=== PATIENT | female | born 1945 | race Caucasian/White ===

== ENCOUNTER 2024-05-29 15:39 | Inpatient (IN) ==
[2024-05-29] MEDS: Lactated Ringers 1000 ml BAG 1,000 ML IV ONE ×3 (16:28→20:36)
[2024-05-29] MEDS ORDERED: Lactated Ringers 1000 ml BAG 1,000 ML IV SCH (17:00)
[2024-05-29 17:02] LABS: Hematocrit 36.8 % (35-45); Mean Corpuscular Hemoglobin 31.6 pg (27-33); Mean Corpuscular Hgb Conc 32.6 g/dL (31-36); Mean Corpuscular Volume 96.9 fL (80-97); Mean Platelet Volume 9.9 fL (7.5-11.2); Platelet Count 253 10^3/uL (150-450); Red Cell Distribution Width 12.2 % (12-17); White Blood Count 25.7 10^3/uL (3.8-11.8)
[2024-05-29 17:16] LABS: Albumin 3.6 g/dL (3.2-5.2); Albumin/Globulin Ratio 1.3 (1-3); Calcium 9.9 mg/dL (8.6-10.3); Creatinine, Serum 2.28 mg/dL (0.51-0.95); Globulin 2.8 g/dL (2-4); Magnesium 1.5 mg/dL (1.9-2.7); Potassium 3.2 mmol/L (3.5-5.0); Total Protein 6.4 g/dL (6.4-8.9); eGFR CKD-EPI 21.4 (>60)
[2024-05-29 17:27] LABS: TSH Ultra Thyroid Stim Horm 1.42 mcIU/mL (0.34-5.60)
[2024-05-29 17:59] LABS: High Sensitivity Troponin 1 Hr 20 pg/mL (<15)
[2024-05-29 18:36] LABS: Urine Appearance Extra Turbid; Urine Bilirubin Negative (Negative); Urine Blood 2+ (Negative); Urine Color Yellow; Urine Glucose Negative (Negative); Urine Ketones Negative (Negative); Urine Nitrite Negative (Negative); Urine Protein 2+ (>=100 mg/dL) (Negative); Urine Specific Gravity 1.017 (1.002-1.030); Urine Urobilinogen Negative (Negative); Urine pH 5.5 (5.0-8.0)
[2024-05-29 18:43] LABS: Urine Bacteria 1+ /HPF (Absent); Urine Red Blood Cell 2+(6-10/hpf) /HPF (0-Trace); Urine Squamous Epithelial Cell Present /HPF (Absent); Urine Transitional Epithelial Present /HPF (Absent); Urine White Blood Cell 3+(>20/hpf) /HPF (0-Trace)
[2024-05-29 19:16] LABS: ABS Lymphocytes 1.5 10^3/uL (1.0-4.8); ABS Monocytes 1.6 10^3/uL (0.0-0.9); ABS Neutrophils 22.6 10^3/uL (1.5-7.6); Eosinophil % 0.1 %; Lymphocyte % 5.7 %; RBC Morphology Normal (Normal)
[2024-05-29] MEDS: Vancomycin 1,250 MG in NS 0.9% 250 ml 250 ML IVPB ONE (19:30)
[2024-05-29] MEDS ORDERED: Zosyn per Pharmacy NOTE FOLLOW UP SCH (23:00)
[2024-05-30] MEDS: Piperacillin/Tazobac 3.375 BAG 3.375 GM/100 ML BAG IV ONE (00:04)
[2024-05-30] MEDS: KCL 20 MEQ/100 ML IVPREMIX 20 MEQ/100 ML BAG IV SCH (02:23)
[2024-05-30] MEDS: Lactated Ringers 1000 ml BAG 1,000 ML IV SCH (02:25)
[2024-05-30] MEDS: Magnesium Sulfate 2 gm BAG 2 GM/50 ML BAG IVPB ONE (02:25)
[2024-05-30] MEDS: Potassium Chlor 20 meq TAB.ER PO ONE ×2 (04:27→09:24)
[2024-05-30] MEDS: HYDROcodone/ACETAMIN 5/325 mg TAB PO PRN (04:28)
[2024-05-30] MEDS: ZOSYN 3.375 GM Q12H per EXTENDED INFUSION IV SCH (05:47)
[2024-05-30 06:52] LABS: ABS Lymphocytes 0.7 10^3/uL (1.0-4.8); ABS Monocytes 1.2 10^3/uL (0.0-0.9); ABS Nucleated RBC 0.01 10^3/ul; Eosinophil % 0.2 %; Hematocrit 31.3 % (35-45); Hemoglobin 10.8 g/dL (11.5-14.3); Lymphocyte % 4.2 %; Mean Corpuscular Hgb Conc 34.5 g/dL (31-36); Mean Corpuscular Volume 95.4 fL (80-97); Mean Platelet Volume 9.6 fL (7.5-11.2); Nucleated Red Blood Cells % 0.1 %/100WBC (0.0-0.8); Platelet Count 188 10^3/uL (150-450); Red Blood Count 3.28 10^6/uL (3.63-4.92)
[2024-05-30 07:00] LABS: INR 1.02 (0.83-1.13)
[2024-05-30 07:39] LABS: Calcium 8.7 mg/dL (8.6-10.3); Creatinine, Serum 1.44 mg/dL (0.51-0.95); Phosphorus 3.3 mg/dL (2.5-5.0); Potassium 3.1 mmol/L (3.5-5.0); eGFR CKD-EPI 37.2 (>60)
[2024-05-30] MEDS ORDERED: cefTRIAXone 1 gm/50 mL D5W 1 GM/50 ML BAG IV SCH (08:00)
[2024-05-30] MEDS ORDERED: Vancomycin per Pharmacy 1 EA NOTE FOLLOW UP SCH (08:00)
[2024-05-30] MEDS ORDERED: Dextrose 50% Syringe 50 ml 25 GM/50 ML SYRINGE IV PUSH PRN (08:03)
[2024-05-30] MEDS ORDERED: Heparin 5000 UNITS/ML 1 mL VIAL SUBCUT SCH (09:00)
[2024-05-30] MEDS: Aspirin EC 81 mg TAB.EC (enteric coated) PO SCH (09:24)
[2024-05-30] MEDS: DULoxetine DR 60 mg CAP PO SCH (09:24)
[2024-05-30] MEDS: Famotidine IV 10 MG/ML 2 ml VIAL (20 mg) IV SLOW PU SCH (09:25)
[2024-05-30] MEDS: KCL 20 MEQ/100 ML IVPREMIX 20 MEQ/100 ML BAG IV ONE (10:05)
[2024-05-30] MEDS: ZOSYN 3.375 GM Q8H per EXTENDED INFUSION IV SCH (13:16)
[2024-05-30 14:59] LABS: Creatinine, Serum 1.29 mg/dL (0.51-0.95); Potassium 4.1 mmol/L (3.5-5.0); eGFR CKD-EPI 42.5 (>60)
[2024-05-30] MEDS: Heparin 5000 UNITS/ML 1 mL VIAL SUBCUT SCH (15:03)
[2024-05-30] MEDS: cefTRIAXone 1 gm/50 mL D5W 1 GM/50 ML BAG IV SCH (15:04)
[2024-05-30] MEDS: cefTRIAXone 1 gm/50 mL D5W 1 GM/50 ML BAG IV ONE (17:04)
[2024-05-30] MEDS ORDERED: Vancomycin 750 MG in NS 0.9% 250 ML IVPB SCH (20:00)
[2024-05-31 06:58] LABS: ABS Eosinophils 0.1 10^3/uL (0.0-0.5); ABS Lymphocytes 0.8 10^3/uL (1.0-4.8); ABS Monocytes 1.1 10^3/uL (0.0-0.9); ABS Neutrophils 13.3 10^3/uL (1.5-7.6); ABS Nucleated RBC 0.01 10^3/ul; Eosinophil % 0.5 %; Hematocrit 32.9 % (35-45); Hemoglobin 11.4 g/dL (11.5-14.3); Lymphocyte % 5.5 %; Mean Corpuscular Hemoglobin 32.9 pg (27-33); Mean Corpuscular Hgb Conc 34.5 g/dL (31-36); Mean Corpuscular Volume 95.3 fL (80-97); Mean Platelet Volume 9.5 fL (7.5-11.2); Platelet Count 214 10^3/uL (150-450); Red Blood Count 3.46 10^6/uL (3.63-4.92); Red Cell Distribution Width 12.3 % (12-17); White Blood Count 15.4 10^3/uL (3.8-11.8)
[2024-05-31 07:41] LABS: Calcium 8.8 mg/dL (8.6-10.3); Creatinine, Serum 1.08 mg/dL (0.51-0.95); Magnesium 1.6 mg/dL (1.9-2.7); Phosphorus 3.5 mg/dL (2.5-5.0); Potassium 2.9 mmol/L (3.5-5.0); eGFR CKD-EPI 52.6 (>60)
[2024-05-31] MEDS: Potassium Chlor 20 meq TAB.ER PO ONE (09:50)
[2024-05-31] MEDS: Sulfur Hexaflouride MICROSPHR 25 MG VIAL IV ONE (09:53)
[2024-05-31] MEDS: KCL 20 MEQ/100 ML IVPREMIX 20 MEQ/100 ML BAG IV SCH (10:02)
[2024-05-31] MEDS: Magnesium Sulf 4 GM/100 ML IV 4,000 MG/100 ML BAG IVPB ONE (11:47)
[2024-05-31] MEDS: cefTRIAXone 2 gm/50 mL D5W 2 GM/50 ML BAG IV SCH (14:53)
[2024-05-31 16:24] LABS: Calcium 8.9 mg/dL (8.6-10.3); Creatinine, Serum 1.02 mg/dL (0.51-0.95); Phosphorus 2.8 mg/dL (2.5-5.0); Potassium 3.6 mmol/L (3.5-5.0); eGFR CKD-EPI 56.3 (>60)
[2024-05-31] MEDS: Potassium Chlor 10 meq TAB PO SCH (20:31)
[2024-06-01 05:40] LABS: ABS Basophils 0.1 10^3/uL (0.0-0.1); ABS Eosinophils 0.4 10^3/uL (0.0-0.5); ABS Lymphocytes 1.2 10^3/uL (1.0-4.8); ABS Monocytes 1.2 10^3/uL (0.0-0.9); Eosinophil % 3.1 %; Hematocrit 33.4 % (35-45); Hemoglobin 11.3 g/dL (11.5-14.3); Lymphocyte % 10.2 %; Mean Corpuscular Hgb Conc 33.8 g/dL (31-36); Mean Corpuscular Volume 94.8 fL (80-97); Mean Platelet Volume 8.9 fL (7.5-11.2); Platelet Count 241 10^3/uL (150-450); Red Blood Count 3.53 10^6/uL (3.63-4.92); Red Cell Distribution Width 12.3 % (12-17); White Blood Count 11.9 10^3/uL (3.8-11.8)
[2024-06-01 06:18] LABS: Calcium 8.5 mg/dL (8.6-10.3); Creatinine, Serum 0.94 mg/dL (0.51-0.95); Magnesium 1.9 mg/dL (1.9-2.7); Potassium 3.4 mmol/L (3.5-5.0); eGFR CKD-EPI 62.1 (>60)
[2024-06-01] MEDS: Potassium Chlor 20 meq TAB.ER PO ONE (09:11)
[2024-06-01] MEDS: Potassium Chlor 20 meq TAB.ER PO SCH (09:11)
[2024-06-01 14:33] VITALS: BP 136/62
[2024-06-01] MEDS ORDERED: Vancomycin Trough Check NOTE FOLLOW UP ONE (19:30)
== END 2024-06-01 15:30 | disposition home or self-care (01) | DRG 871 ==
LOC: ED 15:39 → EDHOLD 15:39 → SUATTDRO 22:49 → MEDTELE 05-30 00:49 → SUATTDRO 05-31 11:32
PROVIDERS: ADMIT Internal Medicine; ATTEND Internal Medicine